=== PATIENT | male | born 1985 | race Caucasian/White ===

== ENCOUNTER → 2019-10-03 | Outpatient (CLI) | payer OTHER ==
[~2019-10-03] VITALS: Ht 182.9 cm; Wt 104.5 kg
[~2019-10-03] MED LIST: GADOBUTROL 7.5 MMOL/7.5 ML (GADAVIST) VIAL IV ONE; IOHEXOL 240 MGI/ML 50 ML (OMNIPAQUE) VIAL IV ONE; IOHEXOL 300 MG/ML 50 ML (OMNIPAQUE 300) VIAL IV ONE
--- NOTE | 2019-10-03 13:52 | Diagnostic Imaging Report ---
INDICATION: Orbital foreign body pre-MRI screening. FINDINGS: Single Kulkarni' view of the orbits shows no radiopaque foreign bodies. IMPRESSION: Negative single view orbits. Dictated by: Dictated on workstation # [id number]
--- NOTE | 2019-10-03 14:23 | Diagnostic Imaging Report ---
INDICATION: Right shoulder injury. Patient presents for injection prior to MRI. Patient was brought to the procedure room and placed on table in the supine position. Right shoulder was prepped and draped in the usual sterile fashion. A small amount of 1% lidocaine was utilized for local anesthesia. 21-gauge needle was advanced into the right shoulder at the rotator interval. 50 mL solution of iodinated contrast, normal saline, and gadolinium was injected under fluoroscopic observation. Needle was withdrawn, and hemostasis was obtained. Patient tolerated the procedure well and was sent to MRI in satisfactory condition. 26 seconds of fluoroscopy was utilized. Image of the shoulder post injection does show contrast extending into the subacromial-subdeltoid bursa consistent with full thickness rotator cuff tear. IMPRESSION: Right shoulder injection of gadolinium contrast solution for MRI, utilizing fluoroscopy. Dictated by: Dictated on workstation # [id number]
--- NOTE | 2019-10-03 18:26 | Diagnostic Imaging Report ---
EXAMINATION: Magnetic resonance imaging of the right shoulder with intra-articular contrast. DATE: October 03, 2019. COMPARISON: Right shoulder arthrogram October 03, 2019. HISTORY: 33-year-old male, right shoulder pain. TECHNIQUE: Magnetic Resonance Imaging sequences were performed of the shoulder following the intra-articular administration of contrast. FINDINGS: ROTATOR CUFF, LIGAMENTS, TENDONS, AND MUSCLES: There is a full thickness full width tear of the supraspinatus tendon. There is tendon retraction just lateral to the glenoid. There is infraspinatus tendinopathy. The teres minor tendon is intact. There is a roughly 50% partial thickness articular-sided tendon tear of subscapularis. There is normal rotator cuff muscle bulk and signal. LONG HEAD OF BICEPS: The long head of biceps tendon is not seen in its intra-articular segment or in the bicipital groove. The long head of biceps tendon is likely torn and retracted below the level of the bicipital groove. GLENOHUMERAL JOINT: The humeral head is well positioned relative to the glenoid. The labrum is intact. There is no identified paralabral cyst. The articular cartilage is grossly intact. There is no intra-articular body or prominent synovitis. ACROMIOCLAVICULAR JOINT: The acromioclavicular joint is normally aligned. The coracoclavicular and coracoacromial ligaments are intact. There is severe acromioclavicular degenerative changes with osteophytes extending 6 mm below the joint margin. BONE: The bones all have normal configuration. The bone marrow signal is within normal limits. Specifically, negative for fracture, osteomyelitis, osteonecrosis, or marrow replacing process. BURSAE AND SOFT TISSUES: There is contrast extension into the subacromial subdeltoid bursa. Additional soft tissue assessment is unremarkable. IMPRESSION: 1. Full thickness full width tear of the supraspinatus tendon with tendon retraction just lateral to the glenoid. Infraspinatus tendinopathy. 50% partial thickness articular sided tendon tear of the subscapularis. No fatty muscle atrophy. 2. Severe acromioclavicular degenerative changes with 6 mm undersurface osteophytes. 3. The long head of biceps tendon is not identified in its intra-articular segment or in the bicipital groove and is likely torn and retracted below the level of the bicipital groove. 4. Intact labrum. Additional glenohumeral joint assessment is unremarkable. 5. No acute fracture, bone contusion or evidence of osteonecrosis. Dictated by: Dictated on workstation # [id number]
== END ==
LOC: RAD 13:00
PROVIDERS: ATTEND Orthopaedic Surgery
DX: Z01.818 Encounter for other preprocedural examination (principal); S46.011A Strain of muscle(s) and tendon(s) of the rotator cuff of right shoulder, initial encounter; M19.011 Primary osteoarthritis, right shoulder
CPT/HCPCS: 23350; 73040; 73222